=== PATIENT | female | born 1965 | race Caucasian/White ===

== ENCOUNTER 2016-07-01 19:23 | Emergency (ER) | payer MEDICARE ==
[~2016-07-01 19:23] MED LIST: AMITRYPTYLINE PO; AMOXICILLIN500 M1 PO; AMOXICILLIN875 MG PO; ATIVAN PO; BENICAR PO; BENTYL10 MG PO; CIPRO PO; CLARITIN10 M2 PO; ESKALITH PO; ESTRADIOL IM; ESTRADIOL SUBQ; ESTRADIOL1 MG PO; ESTROGEN PATCH; FIORICET 50-321 EACH PO; FIORINAL CAPSUL1 CAP PO; FLEXERIL10 MG; FLEXERIL10 MG PO; FOLIC ACID PO; FOLIC ACID1 MG PO; HCTZ PO; HORMONE SHOT; HORMONE SHOT IM; HYDROCHLOROTHIA25 MG PO; HYDROCODON-ACE1 EAC5 PO; HYDROMET SYRUP480 ML PO; IMITREX PO; IMITREX5 MG SUBQ; IMITREX6 MG/0.5 M SQ; IMITREX6 MG/0.51 SQ; KEFLEX PO; KLONOPIN PO; KLONOPIN0.5 MG PO; LAMICTAL PO; LAMICTAL25 MG PO; LORTAB 5/500 TA1 TA1 PO; LORTAB 7.5-5001 TAB PO; LORTAB 7.51 TAB 7.5/ PO; MEDROL4 MG/DOSE- PO; MS CONTIN15 MG PO; NAPROXEN; NEURONTIN100 MG PO; NEURONTIN300 MG PO; NEURONTIN600 MG PO; ORUDIS75 M1 PO; PAMELOR10 MG PO; PAMELOR50 M1 PO; PEN-VEE K; PERCOCET 10/3251 TAB PO; PERCOCET 7.5-31 EACH PO; PERCOCET PO; PERCOCET10 PO; PHENERGAN PO; PHENERGAN PR; PHENERGAN SUPP25 MG PR; PHENERGAN25 M1 PO; PHENERGAN25 MG PO; RELPAX40 MG PO; RIZATRIPTAN; RIZATRIPTAN10 M2; ROBAXIN 750750 MG PO; SINGULAIR PO; STADOL NS25 MG MC; TOPAMAX PO; TOPAMAX200 MG PO; TOPAMAX50 MG PO; TORADOL10 MG PO; TYLENOL #3; VICODIN 5/1 TAB 5/50 PO; ZITHROMAX PO; ZOFRAN ODT4 MG PO; ZOFRAN PO; ZOMIG5 MG PO
[2016-07-01] MEDS ORDERED: ZOFRAN ODT4 MG PO (21:55)
[2016-07-01] MEDS ORDERED: IBUPROFEN800 MG PO (21:56)
== END 2016-07-01 21:56 | disposition home or self-care (01) ==
LOC: SED 19:23
DX: G43.109 Migraine with aura, not intractable, without status migrainosus (principal); I10 Essential (primary) hypertension; Z90.710 Acquired absence of both cervix and uterus; Z90.49 Acquired absence of other specified parts of digestive tract
CPT/HCPCS: 99283; J1200; J1885; J2765

== ENCOUNTER 2016-09-14 11:50 | Emergency (ER) | payer MEDICARE ==
[~2016-09-14 11:50] MED LIST changes: +IBUPROFEN800 MG PO
== END 2016-09-14 15:30 | disposition home or self-care (01) ==
LOC: SED 11:50
DX: G43.909 Migraine, unspecified, not intractable, without status migrainosus (principal); Z90.89 Acquired absence of other organs; Z90.49 Acquired absence of other specified parts of digestive tract; Z90.710 Acquired absence of both cervix and uterus; Z79.899 Other long term (current) drug therapy; Z79.891 Long term (current) use of opiate analgesic
CPT/HCPCS: 96361; 96374; 96375; 99284; J1170; J1200; J1885; J2405; J2550

== ENCOUNTER 2016-09-21 17:22 | Emergency (ER) | payer MEDICARE ==
--- NOTE | ~2016-09-21 | CT2 ---
[facility] A Service of [facility] RADIOLOGY TEXT RESULTS PATIENT: LAURA SOUZA LOCATION: [facility] : 65 UNIT #: [id number] AGE: [address]: Gian Brady MD SEX: F ORDER DR: [id number] [place], [place] [address] [id number] E MR#: [id number] Acc #: [id number] NAME: LAURA SOUZA : 1965 SEX: F STUDY DATE/TIME: 09/21/2016 20:28 UNIT: [facility] ROOM: STUDY DESCRIPTION: CT Abd and Pelv W Cont Attending Physician: Gian Brady M.D. Ordering Physician: Gian Brady M.D. Primary Care Physician: Henrique De Dios M.D. MEDICAL IMAGING REPORT This report is preliminary unless electronic signature is present EXAM CT abdomen and pelvis with IV contrast HISTORY Right upper quadrant abdomen pain today. Vomiting. TECHNIQUE CT abdomen and pelvis was performed with IV contrast. This CT exam was performed with one or more of the following radiation dose reduction techniques: automatic exposure control, adjustment of mA and/or kV according to patient size, and iterative reconstruction. FINDINGS CT abdomen: The liver, spleen, pancreas, kidneys, and adrenal glands are unremarkable. Cholecystectomy. Normal caliber abdominal aorta. No adenopathy. No ascites. No biliary dilatation. Tiny umbilical hernia containing fat. CT pelvis: Fusion of L4-L5. No pelvic mass or fluid collection. Hysterectomy. Urinary bladder is normal. No bowel dilatation. IMPRESSION 1. No acute findings in the abdomen or pelvis. 2. There is no urinary obstruction or bowel obstruction. 3. Cholecystectomy and hysterectomy. Lower lumbar fusion. Dictated by... Mohinder Abrams M.D. [facility] A Service of [facility] RADIOLOGY TEXT RESULTS PATIENT: LAURA SOUZA LOCATION: [facility] : 65 UNIT #: [id number] AGE: [address]: Gian Brady MD SEX: F ORDER DR: THIS IS AN ELECTRONICALLY VERIFIED REPORT Mohinder Sarthak Abrams M.D. at 09/22/2016 5:29 PM BOLIVAR/anjana TD: 09/22/2016 00:54 JOB #: [id number] MEDICAL IMAGING REPORT Page 1 of 1 COPY
[2016-09-21 18:54] LABS: URINE SOURCE CLEAN CATCH
[2016-09-21 19:04] LABS: BASOPHIL# 0.1 X10e3 (0-0.3); BASOPHIL% 0.8 % (0-2.5); EOSINOPHIL# 0.1 X10e3 (0-0.7); EOSINOPHIL% 1.9 % (0.0-7.0); HEMATOCRIT 37.8 % (35.0-45.0); HEMOGLOBIN 11.8 gm/dL (12.0-16.0); LYMPHOCYTE# 2.6 X10e3 (1.0-3.5); MEAN CELL VOLUME 79.4 FL (83-96); MEAN CORPUSCULAR HEMOGLOBIN 24.8 PG (28-34); MEAN CORPUSCULAR HGB CONC 31.3 g/dL (30-36); MEAN PLATELET VOLUME 7.4 FL (6.5-11.5); MONOCYTE# 0.5 X10e3 (0-1.0); MONOCYTE% 5.9 % (3.0-12.0); NEUTROPHIL# 4.5 X10e3 (1.5-7.1); NEUTROPHIL% 58.4 % (40-75); PLATELET COUNT 398 X10e3 (140-420); RED BLOOD COUNT 4.76 X10e (3.90-5.30); RED CELL DISTRIBUTION WIDTH 18.9 % (11.0-15.5); WHITE BLOOD COUNT 7.8 X10e3 (4.0-10.5)
[2016-09-21 19:05] LABS: DIFF IND NO
[2016-09-21 19:22] LABS: URINE APPEARANCE CLOUDY; URINE BILIRUBIN NEG (NEG); URINE BLOOD 2+ (NEG); URINE COLOR YELLOW; URINE GLUCOSE NEG (NEG); URINE KETONE NEG (NEG); URINE LEUKOCYTE ESTERASE TRACE (NEG); URINE NITRATE NEG (NEG); URINE PH 7.5 (5-8); URINE PROTEIN NEG (NEG); URINE SPECIFIC GRAVITY 1.019 (1.003-1.035); URINE UROBILINOGEN 0.2 MG/DL (NEG)
[2016-09-21 19:23] LABS: ALBUMIN SERUM 4.6 g/dL (3.5-5.0); BILIRUBIN, DIRECT 0.1 mg/dL (0.0-0.2); BILIRUBIN,INDIRECT 0.8 mg/dL (0.0-0.9); BILIRUBIN,TOTAL 0.9 mg/dL (0.2-2.0); BUN/CREATININE RATIO 17.77; CALCIUM SERUM 9.6 mg/dL (8.4-10.2); CREATININE SERUM 0.9 mg/dL (0.6-1.4); GLOM FILT RATE Estimated 74.1 mL/min (>60); PROTEIN TOTAL SERUM 8.1 g/dL (6.0-8.3)
[2016-09-21 19:24] LABS: U HYALINE CASTS AUWI 0-2 /[LPF]; URBCS1 AUWI 50-100 /[HPF] (0-2); URINE BACTERIA AUWI NEG (NEGATIVE); URINE SQUAMOUS EPITHELIAL CELL OCC /[HPF]
[2016-09-21 19:25] LABS: POTASSIUM 3.1 mmol/L (3.5-5.1)
[2016-09-21 19:26] LABS: CULTURE INDICATED? NO
== END 2016-09-21 21:53 | disposition home or self-care (01) ==
LOC: CED 17:22
DX: R10.11 Right upper quadrant pain (principal); R11.2 Nausea with vomiting, unspecified; Z79.899 Other long term (current) drug therapy
CPT/HCPCS: 36415; 74177; 80048; 80076; 81003; 82150; 83690; 85025; 96361; 96374; 96375; 99284; J2270; J2405; Q9967

== ENCOUNTER 2016-11-16 17:08 | Emergency (ER) | payer MEDICARE ==
[2016-11-16] MEDS ORDERED: BLOOD PRESSURE (17:36)
== END 2016-11-16 20:20 | disposition home or self-care (01) ==
LOC: SED 17:08
DX: G43.909 Migraine, unspecified, not intractable, without status migrainosus (principal); I10 Essential (primary) hypertension; Z90.49 Acquired absence of other specified parts of digestive tract; Z87.891 Personal history of nicotine dependence; Z79.899 Other long term (current) drug therapy
CPT/HCPCS: 36415; 96374; 96375; 99283; J0780; J1200; J2765

== ENCOUNTER 2016-11-19 12:56 | Emergency (ER) | payer MEDICARE ==
[~2016-11-19] VITALS: Ht 167.6 cm; Wt 76.2 kg
--- NOTE | ~2016-11-19 | CT16 ---
[facility] A Service of [facility] & [facility] RADIOLOGY TEXT RESULTS PATIENT: LAURA SOUZA LOCATION: SED : 65 UNIT #: [id number] AGE: [address]: Byron Esquivel MD SEX: F ORDER DR: [id number] E MR#: [id number] Acc #: [id number] NAME: LAURA SOUZA : 1965 SEX: F STUDY DATE/TIME: 11/19/2016 14:54 UNIT: [facility] ROOM: STUDY DESCRIPTION: CT Angio Chest for PE Attending Physician: Byron Esquivel M.D. Ordering Physician: Byron Esquivel M.D. Primary Care Physician: Henrique De Dios M.D. MEDICAL IMAGING REPORT This report is preliminary unless electronic signature is present. EXAM CT angiogram of the chest. INDICATIONS Chest pain starting today as well as tachycardia for [address] images were obtained from the thoracic inlet through the dome of the diaphragm following the administration of intravenous contrast material. Following this, 3-D reformatted images were obtained. This CT exam was performed with one or more of the following radiation dose reduction techniques: Automatic exposure control, adjustment of mA and/or kV according to patient size, and iterative reconstruction. FINDINGS No acute pulmonary thromboembolus is seen. Thoracic aorta measures within normal size limits and I do not see any evidence of dissection. There are some coronary artery calcifications. There is no pleural or pericardial effusion. The thyroid gland, trachea and esophagus appear within normal limits. Mediastinal lymph nodes do not appear pathologically enlarged. I do not see any acute abnormalities within the upper abdomen. 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 Superior mesenteric artery appears widely patent. Patient is noted to have an area of nodularity within the lingula measuring up to 1.7 x 1.2 cm. I suspect this is actually probably just some scarring or atelectasis, but would suggest a short-term CT followup in 3 months. Some additional nodularity is seen at the left lung apex measuring up to about 8 mm, again favored to represent some scarring, but, again, attention to it on subsequent exam is suggested. There is also a 3 mm nodule seen at the right lung apex. [facility]. [facility] A Service of [facility] & [facility] RADIOLOGY TEXT RESULTS PATIENT: LAURA SOUZA [place] [facility] [place] 65 UNIT #: [id number] AGE: [address]: Byron Esquivel MD SEX: F ORDER DR: Review of bony windows does not demonstrate any aggressive osseous abnormalities. IMPRESSION 1. No acute pulmonary thromboembolus seen. 2. Thoracic aorta is normal in caliber and there is no evidence of dissection. 3. No pulmonary infiltrates identified. The patient does have a few areas of nodularity, which I suspect reflects some scarring; single largest measures up to about 1.2 x 1.7 cm. Although I would favor that they are benign, I would suggest short-term CT followup in 3 months. 4. 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 Dictated by... Vikki Hurst M.D. THIS IS AN ELECTRONICALLY VERIFIED REPORT Vikki Hurst M.D. at 11/20/2016 2:11 PM AFF/psc TD: 11/19/2016 21:27 JOB #: [id number] MEDICAL IMAGING REPORT Page 1 of 1
--- NOTE | ~2016-11-19 | EKG ---
PATIENT: LAURA SOUZA UNIT #: [id number] Ventricular Rate: 109 BPM Atrial Rate: 109 BPM P-R Interval: 166 ms QRS Duration: 92 ms Q-T Interval: 358 ms QTC Calculation(Bezet): 482 ms P [place]: 69 degrees Calculated R [place]: 64 degrees Calculated T [place]: 43 degrees Diagnosis Line: Sinus tachycardia Diagnosis Line: Possible Left atrial enlargement Diagnosis Line: RSR' or QR pattern in V1 suggests right Diagnosis Line: ventricular conduction delay Diagnosis Line: Cannot rule out Anterior infarct , age Diagnosis Line: undetermined Diagnosis Line: Abnormal ECG Diagnosis Line: Diagnosis Line: Confirmed by ASHLEE WILSON MD ([id number]) on Diagnosis Line: 11/22/2016 4:04:00 PM INTERPRETING MD: KATIE GILLIS
[~2016-11-19 12:56] MED LIST changes: +BLOOD PRESSURE
[2016-11-19 13:47] LABS: BASOPHIL# 0.1 X10e3 (0-0.3); BASOPHIL% 0.9 % (0-2.5); EOSINOPHIL# 0.1 X10e3 (0-0.7); HEMATOCRIT 37.9 % (35.0-45.0); LYMPHOCYTE# 1.8 X10e3 (1.0-3.5); MEAN CELL VOLUME 79.7 FL (83-96); MEAN CORPUSCULAR HEMOGLOBIN 25.3 PG (28-34); MEAN CORPUSCULAR HGB CONC 31.8 g/dL (30-36); MEAN PLATELET VOLUME 7.5 FL (6.5-11.5); MONOCYTE# 0.5 X10e3 (0-1.0); MONOCYTE% 8.1 % (3.0-12.0); NEUTROPHIL# 3.8 X10e3 (1.5-7.1); PLATELET COUNT 510 X10e3 (140-420); RED BLOOD COUNT 4.76 X10e (3.90-5.30); RED CELL DISTRIBUTION WIDTH 17.6 % (11.0-15.5); WHITE BLOOD COUNT 6.3 X10e3 (4.0-10.5)
[2016-11-19 13:48] LABS: DIFF IND NO
[2016-11-19 13:59] LABS: ALBUMIN SERUM 5.1 g/dL (3.5-5.0); ALKALINE PHOSPHATASE 90 U/L (32-92); ALT (SGPT) 18 U/L (10-40); AST (SGOT) 18 U/L (10-42); BILIRUBIN,TOTAL 0.5 mg/dL (0.2-2.0); BLOOD UREA NITROGEN 15 mg/dL (9-23); CARBON DIOXIDE 24 mmol/L (22-31); CHLORIDE 104 mmol/L (100-111); GLOM FILT RATE Estimated 65.2 mL/min (>60); GLUCOSE FASTING 106 mg/dL (70-110); POTASSIUM 3.7 mmol/L (3.5-5.1); PROTEIN TOTAL SERUM 8.5 g/dL (6.0-8.3); SODIUM 137 mmol/L (135-145)
[2016-11-19 14:10] LABS: POC - CKMB <1.0 ng/mL (0.0-7.9); POC - TROPONIN <0.05 ng/mL (<=0.05)
[2016-11-19 14:23] LABS: BILIRUBIN, DIRECT <0.1 mg/dL (0.0-0.2); BILIRUBIN,INDIRECT 0.4 mg/dL (0.0-0.9)
[2016-11-19 14:46] LABS: THYROID STIMULATING HORMONE 1.05 uIU/ml (0.34-5.60)
[2016-11-19 16:42] LABS: FREE THYROXIN (T4) 0.76 ng/dL (0.58-1.64)
== END 2016-11-19 17:15 | disposition home or self-care (01) ==
LOC: SED 12:56
PROVIDERS: Emergency Medicine
DX: R07.89 Other chest pain (principal); R00.2 Palpitations; I10 Essential (primary) hypertension; Z79.899 Other long term (current) drug therapy
CPT/HCPCS: 36415; 71275; 80048; 80076; 82553; 84439; 84443; 84484; 85025; 93005; 96374; 96375; 99285; J0360; J1170; Q9967

== ENCOUNTER → 2016-11-24 | Outpatient (CLI) | payer MEDICARE ==
--- NOTE | ~2016-11-24 | US6 ---
[facility] A Service of [facility] & [facility] RADIOLOGY TEXT RESULTS PATIENT: LAURA SOUZA LOCATION: [facility] : 65 UNIT #: [id number] AGE: [address]: Zan Arias MD SEX: F ORDER DR: [id number] [facility] [place], [place] [address] [id number] O MR#: [id number] Acc #: [id number] NAME: LAURA SOUZA : 1965 SEX: F STUDY DATE/TIME: 11/24/2016 10:35 UNIT: [facility] ROOM: STUDY DESCRIPTION: US Abdominal Limited Attending Physician: Zan Arias M.D. Referring Physician: Zan Arias M.D. Ordering Physician: Zan Arias M.D. Primary Care Physician: Zan Arias M.D. MEDICAL IMAGING REPORT This report is preliminary unless electronic signature is present EXAM Right upper quadrant ultrasound INDICATION Abdominal pain, vomiting and indigestion for 2 weeks. TECHNIQUE House-scale and color Doppler sonographic images were obtained through the right upper quadrant. FINDINGS Visualized portions of the pancreas appear unremarkable. Liver parenchyma does appear somewhat heterogeneous and I think it is probably also steatotic liver measures within normal size limits at 13.9 cm. No intra or extrahepatic biliary dilatation is seen. No focal hepatic lesions are identified. Right kidney is normal in appearance with no solid or cystic renal masses seen and no hydronephrosis identified. Patient's gallbladder is surgically absent. IMPRESSION Overall heterogeneous liver parenchyma as well as some hepatic steatosis, correlation with liver function tests is suggested. No focal hepatic lesions are seen. Dictated by... Vikki Hurst M.D. THIS IS AN ELECTRONICALLY VERIFIED REPORT Vikki Hurst M.D. at 11/25/2016 5:23 PM AFF/rnr TD: 11/24/2016 18:44 JOB #: [id number] [facility] A Service of [facility] & [facility] RADIOLOGY TEXT RESULTS PATIENT: LAURA SOUZA LOCATION: [facility] : 65 UNIT #: [id number] AGE: [address]: Zan Arias MD SEX: F ORDER DR: MEDICAL IMAGING REPORT Page 1 of 1 COPY
--- NOTE | ~2016-11-24 | US10 ---
[id number] [facility] [address] [place], [place] [address] [id number] O MR#: [id number] Acc #: [id number] NAME: LAURA SOUZA : 1965 SEX: F STUDY DATE/TIME: 11/24/2016 10:29 UNIT: [facility] ROOM: STUDY DESCRIPTION: US Aorta Complete Attending Physician: Zan Arias M.D. Referring Physician: Zan Arias M.D. Ordering Physician: Zan Arias M.D. Primary Care Physician: Zan Arias M.D. MEDICAL IMAGING REPORT This report is preliminary unless electronic signature is present EXAM Aortic ultrasound INDICATION Abdominal pain for 2 weeks and apparently a prominent pulse in the right upper quadrant on physical exam. Patient did have CT angiogram of the chest performed November 19, 2016 which showed post stenotic dilatation of the celiac axis. The CT was performed November 19, 2016. TECHNIQUE House-scale color Doppler and spectral Doppler waveform analysis was performed through the patient's abdomen. FINDINGS Abdominal aorta measures within normal size limits. Patient's right common iliac artery measures about 7 mm in size, while the left measures about 1.4 cm in size. Proximal abdominal aorta measures up to 2.3 x 1.8 cm, mid abdominal aorta measures 1.8 x 1.6 cm. The distal abdominal aorta measures 1.8 x 1.3 cm. There is some atherosclerotic plaque seen within the distal abdominal aorta. IMPRESSION 1. No evidence of aneurysmal dilatation of the patient's abdominal aorta. 2. Prior CT angiogram of the chest, showed some post stenotic dilatation of the celiac axis. This certainly cannot be assessed on this aortic ultrasound. Dictated by... Vikki Hurst M.D. THIS IS AN ELECTRONICALLY VERIFIED REPORT Vikki Hurst M.D. at 11/25/2016 5:23 PM AFF/rnr TD: 11/24/2016 18:31 JOB #: [id number] MEDICAL IMAGING REPORT Page 1 of 1 COPY
== END | disposition home or self-care (01) ==
LOC: CWCC 09:59
DX: R11.2 Nausea with vomiting, unspecified (principal); R09.89 Other specified symptoms and signs involving the circulatory and respiratory systems; K76.9 Liver disease, unspecified; K76.0 Fatty (change of) liver, not elsewhere classified; I72.8 Aneurysm of other specified arteries
CPT/HCPCS: 76705; 76770

== ENCOUNTER → 2016-11-25 | Outpatient (CLI) | payer MEDICARE, OTHER ==
--- NOTE | ~2016-11-25 | HM ---
Unit #: [id number] #: [id number] Patient: LAURA SOUZA [id number] [address] [address] [id number] O MR#: [id number] NAME: LAURA SOUZA : 1965 SEX: F STUDY DATE/TIME: [place]: [facility] [place]OM: STUDY DESCRIPTION: Holter Monitor Attending Physician: Zan Arias M.D. Referring Physician: Zan Arias M.D. Primary Care Physician: Zan Arias M.D. CARDIOLOGY REPORT EXAM Holter Monitor DATE APPLIED 11/25/2016 DATE SCANNED 11/30/[address] Zan Arias READ BY Dr. Ralph Beth REASON FOR TEST IRR, HR, MVR, COMMENTS 1. Underlying rhythm is normal sinus. 2. Average heart rate is 88 beats per minute. Minimum recorded heart rate 69, maximum recorded heart rate 129 beats per minute. 3. Frequent premature ventricular contractions are noted with 4883 isolated PVCs. 4. Two premature ventricular couplets are seen. 5. No runs of ventricular tachycardia recorded. 6. 19 isolated premature atrial contractions are seen. There are no couplets or runs of atrial tachycardia. 7. There is no significant bradycardia, AV ayush block, sinus arrest of sinus pause. 8. The patient did not report any symptom or report any activity diary. IMPRESSION 24 hour ambulatory monitoring is abnormal with frequent premature ventricular contractions, mostly isolated. No significant slowing of heart rate. Dictated by... Ralph Beth M.D. Unit #: [id number] #: [id number] Patient: LAURA SOUZA AKU/df TD: 12/01/2016 07:19 JOB #: [id number] CARDIOLOGY REPORT Page 1 of 1 X Ralph Beth MD HOLTER MONITOR REPORT
== END | disposition home or self-care (01) ==
LOC: CEKG 12:44
DX: I49.9 Cardiac arrhythmia, unspecified (principal); I10 Essential (primary) hypertension; I49.3 Ventricular premature depolarization
CPT/HCPCS: 93225; 93226

== ENCOUNTER → 2016-11-30 | Outpatient (CLI) | payer MEDICARE | END | disposition home or self-care (01) | LOC: CECH 09:40 | DX: R01.1 Cardiac murmur, unspecified (principal); I10 Essential (primary) hypertension; I49.9 Cardiac arrhythmia, unspecified; R51 Headache; I51.7 Cardiomegaly | CPT/HCPCS: 93306 ==

== ENCOUNTER → 2016-12-06 | Outpatient (CLI) | payer MEDICARE ==
--- NOTE | ~2016-12-06 | ST ---
Unit #: [id number] #: [id number] Patient: LAURA SOUZA [id number] [address] [place], [place] [address] [id number] O MR#: [id number] NAME: LAURA SOUZA : 1965 SEX: F STUDY DATE/TIME: UNIT: [facility] ROOM: STUDY DESCRIPTION: Stress Test Attending Physician: Zan Arias M.D. Referring Physician: Zan Arias M.D. Primary Care Physician: Zan Arias M.D. CARDIOLOGY REPORT EXAM Exercise Cardiolite Stress Test DESCRIPTION Baseline EKG - normal sinus rhythm with ventricular rate 78 beats per minute, Q wave noted in V3, slow R wave progression, occasional premature ventricular complex, left atrial abnormality. Patient walked on the treadmill for six minutes utilizing Martin protocol achieving a workload of 7.0 METs. 86% of maximum target heart rate achieved at 146 beats per minute with a maximum blood pressure response of 182/94 mmHg. EKG during the test continued to show occasional PVCs, nothing acute. Patient had no complaints of chest pain, palpitations or dizziness, had increased shortness of breath and fatigueness which resolved in recovery phase. Patient had a fairly poor exercise tolerance due to shortness of breath. Cardiolite was injected at maximum target heart rate. Radionuclide test pending. Please correlate with nuclear images. Dictated by... Traci Schmidt A.P.R.N. for Quincy Patterson TD: 12/06/2016 11:51 JOB #: [id number] Unit #: [id number] #: [id number] Patient: LAURA SOUZA CARDIOLOGY REPORT Page 1 of 1 X Traci Schmidt APRN CARDIOLOGY REPORT
--- NOTE | ~2016-12-06 | TH ---
Unit #: [id number] #: [id number] Patient: LAURA SOZUA [id number] [address] [address] [id number] O MR#: [id number] NAME: LAURA SOUZA : 1965 SEX: F STUDY DATE/TIME: UNIT: [facility] ROOM: STUDY DESCRIPTION: Nuclear Study Attending Physician: Zan Arias M.D. Referring Physician: Zan Arias M.D. Primary Care Physician: Zan Arias M.D. CARDIOLOGY REPORT EXAM Exercise Cardiolite Stress Test - Nuclear Portion PROCEDURE Using technetium 99m labeled Cardiolite, rest and stress SPECT images were obtained. Multiple SPECT images were obtained in various views including horizontal and vertical long axis and short axis views of the left ventricle. Images were obtained by gated SPECT method. Patient was administered 10.68 mCi of Cardiolite at rest. Patient was administered 30.7 mCi of Cardiolite at peak exercise. Total exercise time is 6 minutes. On the stress images, there is normal perfusion noted. The rest images show normal perfusion. Comparing rest and stress images, there is no stress-induced ischemia noted. The left ventricular ejection fraction is calculated to be 75%. There is no focal wall motion abnormality seen. CONCLUSION 1. No stress-induced ischemia noted. 2. The left ventricular ejection fraction is calculated to be 75%. 3. There is no focal wall motion abnormality seen. 4. The left ventricular size is small. 5. Normal exercise Cardiolite stress test. Dictated by... Quincy Patterson TD: 12/07/2016 05:21 JOB #: [id number] Unit #: [id number] #: [id number] Patient: LAURA SOUZA CARDIOLOGY REPORT Page 1 of 1 X Kim Tao MD <ELECTRONICALLY SIGNED> 01/06/17 1524 CARDIOLOGY REPORT
== END | disposition home or self-care (01) ==
LOC: CNUC 06:15
DX: I49.9 Cardiac arrhythmia, unspecified (principal); I49.3 Ventricular premature depolarization; I10 Essential (primary) hypertension; R51 Headache; R94.31 Abnormal electrocardiogram [ECG] [EKG]
CPT/HCPCS: 78452; 93017; A9500